=== PATIENT | male | born 1975 | race Caucasian/White ===

== ENCOUNTER 2024-03-08 21:34 | Inpatient (IN) | payer OTHER ==
[~2024-03-08] VITALS: Ht 175.3 cm; Wt 74.1 kg
[2024-03-08] MEDS ORDERED: ONDANSETRON HCL 4 MG/2 ML VIAL IVP PRN (23:15)
[2024-03-08] MEDS ORDERED: ACETAMINOPHEN 325 MG TABLET PO PRN (23:15)
[2024-03-08] MEDS ORDERED: MAGNESIUM HYDROXIDE SUSPENSION 30 ML UDCUP PO PRN (23:15)
[2024-03-08] MEDS ORDERED: OxyCODONE HCL/ACETAMINOPHEN 5-325 MG TABLET PO PRN ×2 (23:15)
[2024-03-08] MEDS ORDERED: GADOTERATE MEGLUMINE 10 MMOL/20 ML VIAL IVP ONE (23:55)
[2024-03-09 00:33] LABS: BASOPHILS % (AUTO) 0.3 % (0.0-2.0); EOSINOPHILS % (AUTO) 2.7 % (1.0-6.0); HEMATOCRIT 42.9 % (41-53); LYMPHOCYTES # (AUTO) 2.5 K/uL (1.0-4.8); LYMPHOCYTES % (AUTO) 39.6 % (22.0-44.0); MEAN CORPUSCULAR HEMOGLOBIN 27.7 pg (26.0-34.0); MEAN CORPUSCULAR HGB CONC 32.7 G/dL (31.0-37.0); MEAN CORPUSCULAR VOLUME 85 fL (80-100); MONOCYTES # (AUTO) 0.8 K/uL (0.1-1.0); NEUTROPHILS # (AUTO) 2.9 K/uL (1.8-7.7); NEUTROPHILS % (AUTO) 45.4 % (40.0-70.0); PLATELET COUNT (AUTO) 152 K/uL (150-450); RED BLOOD CELL COUNT(AUTO) 5.06 MIL/uL (4.50-5.90); RED CELL DISTRIBUTION WIDTH 15.2 % (11.5-14.5); WHITE BLOOD COUNT (AUTO) 6.4 K/uL (4.5-11.0)
[2024-03-09 00:46] LABS: ANION GAP 8 mmol/L (8-16); CALCIUM, TOTAL 8.6 mg/dL (8.8-10.5); CARBON DIOXIDE 31 mmol/L (22-29); CHLORIDE 105 mmol/L (98-107); CREATININE 0.91 mg/dL (0.60-1.30); GLOMERULAR FILTR. RATE CALC > 60 mL/min (>60); GLUCOSE,RANDOM 97 mg/dL (70-110); POTASSIUM 4.4 mmol/L (3.5-5.1); SODIUM SERUM 144 mmol/L (136-145); UREA NITROGEN, BLOOD 30 mg/dL (7-18)
[2024-03-09] MEDS: HEPARIN SODIUM,PORCINE 5,000 UNITS/ML VIAL SQ SCH (00:48)
[2024-03-09] MEDS: KETOROLAC TROMETHAMINE 30 MG/ML VIAL IVP ONE (00:48)
[2024-03-09] MEDS: ACETAMINOPHEN 500 MG TABLET PO ONE (00:49)
[2024-03-09] MEDS: LIDOCAINE 5% TRANSDERMAL PATCH TD ONE (00:50)
[2024-03-09 00:51] LABS: ALANINE AMINOTRANSFERASE 276 U/L (12-78); ALBUMIN 3.8 g/dL (3.4-5.0); ALKALINE PHOSPHATASE 128 U/L (46-116); ASPARTATE AMINOTRANSFERASE 99 U/L (15-37); BILIRUBIN,TOTAL 0.2 mg/dL (0.1-1.0); C-REACTIVE PROTEIN QUANT 0.16 mg/dL (0.00-0.30); TOTAL PROTEIN, SERUM 7.3 g/dL (6.4-8.2)
[2024-03-09 00:55] LABS: ERYTHROCYTE SEDIMENTATION RATE < 1 MM/HR (0-15)
[2024-03-09] MEDS ORDERED: SODIUM CHLORIDE 0.9% 100 ML ONE (01:00)
[2024-03-09] MEDS ORDERED: IOHEXOL 350 MG/ML 100 ML VIAL ONE (01:01)
[2024-03-09 04:23] LABS: APPEARANCE,URINE CLEAR (CLEAR); BILIRUBIN,URINE NEGATIVE (NEGATIVE); COLOR,URINE LIGHT YELLOW (YELLOW); GLUCOSE, URINE (UA) NEGATIVE (NEGATIVE); KETONES,URINE NEGATIVE (NEGATIVE); LEUKOCYTE ESTERASE ,URINE TRACE (NEGATIVE); NITRATE,URINE NEGATIVE (NEGATIVE); OCCULT BLOOD,URINE NEGATIVE (NEGATIVE); PH,URINE 6.5 (5.0-8.0); PROTEIN,URINE TRACE mg/dL (NEGATIVE); SPECIFIC GRAVITIY, URINE 1.043 (1.003-1.030); UROBILINOGEN,URINE <=1.0 mg/dL (<=1.0)
[2024-03-09 04:34] LABS: BACTERIA,URINE None Seen /HPF (None Seen); RBC,URINE None Seen /HPF (0-2); SQUAMOUS EPITHELIAL CELL,UR Few /LPF (None Seen); WBC,URINE 0-2 /HPF (0-5)
[2024-03-09 04:42] VITALS: BP 121/75; PULSE 64; RESP 18; TEMP 98.3
[2024-03-09 08:21] VITALS: BP 133/84; PULSE 68; RESP 20; TEMP 98.3
[2024-03-09] MEDS: FAMOTIDINE 20 MG TABLET PO SCH (09:28)
[2024-03-09] MEDS: DOCUSATE SODIUM 100 MG CAPSULE PO SCH (09:28)
[2024-03-09 14:42] LABS: PH,URINE DRUG SCREEN 7.5 (5.0-8.0)
[2024-03-09] MEDS ORDERED: GADOTERATE MEGLUMINE 10 MMOL/20 ML VIAL IVP ONE (14:50)
[2024-03-09 15:01] LABS: ALCOHOL, URINE DRUG SCREEN NEGATIVE (NEGATIVE); AMPHET/METH SCREEN,URINE NEGATIVE (NEGATIVE); BARBITURATE SCREEN, URINE NEGATIVE (NEGATIVE); BENZODIAZEPINES SCREEN,URINE NEGATIVE (NEGATIVE); CANNABINOID SCREEN,URINE NEGATIVE (NEGATIVE); COCAINE SCREEN,URINE NEGATIVE (NEGATIVE); METHADONE SCREEN, URINE NEGATIVE (NEGATIVE); OPIATE SCREEN,URINE NEGATIVE (NEGATIVE); PHENCYCLIDINE SCREEN,URINE NEGATIVE (NEGATIVE)
[2024-03-09 20:22] VITALS: BP 117/76; PULSE 71; RESP 18; TEMP 98
[2024-03-09] MEDS: ZOLPIDEM TARTRATE 5 MG TABLET PO PRN (20:49)
[2024-03-10 04:47] VITALS: BP 112/70; PULSE 58; RESP 18; TEMP 97.7
[2024-03-10 08:40] VITALS: BP 114/77; PULSE 59; RESP 18; TEMP 98.1
[2024-03-10 12:06] LABS: HEPATITIS A ANTIBODY IGM Negative (Negative); HEPATITIS B CORE IGM Negative (Negative)
[2024-03-10] MEDS ORDERED: TRAM50TA5 PO (14:54)
[2024-03-10 20:12] VITALS: BP 104/69; PULSE 66; RESP 18; TEMP 98.1
[2024-03-13 18:06] LABS: HEPATITIS C AB (EIA) Reactive (Non Reactive); HEPATITIS C RT-PCR,QNT 108000 IU/mL
== END 2024-03-10 21:43 | DRG 552 ==
LOC: EMS 21:34 → 6S 23:51
PROVIDERS: ADMIT Internal Medicine; ATTEND Internal Medicine
DX: M43.17 Spondylolisthesis, lumbosacral region (principal); M51.26 Other intervertebral disc displacement, lumbar region; E78.00 Pure hypercholesterolemia, unspecified; F15.90 Other stimulant use, unspecified, uncomplicated; R74.8 Abnormal levels of other serum enzymes
CPT/HCPCS: 70450; 72130; 72133; 72158; 76700; 80053; 80074; 80307; 81001; 85025; 85651; 86140; 87040; 87522; 99285; J1644; J1885; J7050; Q9967